=== PATIENT | male | born 1980 | race Caucasian/White ===

== ENCOUNTER 2022-06-09 11:11 | Observation (INO) ==
[2022-06-09] MEDS ORDERED: ONDANSETRON 4 MG/2 ML VIAL IV STA (11:55)
[2022-06-09] MEDS ORDERED: HYDROmorphone 1 MG/1 ML SYRINGE IV STA (11:55)
[2022-06-09] MEDS ORDERED: LACTATED RINGERS 1,000 ML IV STA (11:55)
[2022-06-09 12:23] LABS: Basophils # 0.1 10*3/uL (0.0-0.2); Basophils % 0.4 % (0.0-0.8); Eosinophils # 0.2 10*3/uL (0.0-0.87); Eosinophils % 1.8 % (0.00-10.9); Hematocrit 37.8 VOL% (42.0-52.0); Hemoglobin 12.5 GM/DL (14.0-18.0); Immature Granulocytes % 0.6 %; Immature Granulocytes Absolute 0.08 #; Lymphocytes # 1.3 10*3/uL (1.4-4.0); Lymphocytes % 10.1 % (21.2-54.2); Mean Corpuscular HGB Conc 33.1 GM/DL (32-36); Mean Corpuscular Volume 87.7 FL (87-102); Mean Platelet Volume 10.2 FL (9.6-12.0); Monocytes # 0.6 10*3/uL (0.11-0.8); Neutrophils % 82.1 % (38.7-73.9); Platelet Count 194 T/CUMM (130-400); Red Blood Count 4.31 MC/CUMM (3.8-5.5); Red Cell Distribution Width 12.5 % (9.3-17.3); White Blood Count 12.4 T/CUMM (4-12)
[2022-06-09 12:32] LABS: PT Patient Result 10.9 SECS (10.1-12.1)
[2022-06-09 12:40] LABS: Bilirubin,Total 0.4 MG/DL (0.20-1.00); Calcium 9.3 MG/DL (8.5-10.1); Osmolality,Calculated 280.1 MOS/KG (273-304); Potassium 4.1 MMOL/L (3.5-5.1); Total Protein 7.4 G/DL (6.4-8.2)
[2022-06-09 14:39] LABS: Mucus,Urine Occasional /LPF (Occasional); RBC,Urine 4 /HPF (0-4); Squamous Epithelial Cell,Urine Occasional /HPF (0-10)
[2022-06-09 14:40] LABS: Bilirubin,Urine Negative (Negative); Blood, Urine Small mg/dL (Negative); Glucose,Urine (UA) Negative (Negative); Ketones,Urine Negative (Negative); Nitrite,Urine Negative (Negative); Protein,Urine 30 mg/dL (Negative); Urine Appearance Clear (Clear); Urine Color Yellow (Yellow); Urine Specific Gravity 1.015 (1.001-1.035); Urine Urobilinogen 0.2 eU/dL (<2.0); Urine pH 7.5 (4.5-8.0)
[2022-06-09] MEDS: LACTATED RINGERS 1,000 ML IV SCH (15:41)
[2022-06-09] MEDS: HYDROmorphone 1 MG/1 ML SYRINGE IV PRN (18:10)
[2022-06-10] MEDS: HYDROmorphone 1 MG/1 ML SYRINGE IV PRN ×3 (03:04→22:07)
[2022-06-10] MEDS: LACTATED RINGERS 1,000 ML IV SCH (05:01)
[2022-06-10 07:07] LABS: Basophils % 0.2 % (0.0-0.8); Eosinophils # 0.2 10*3/uL (0.0-0.87); Eosinophils % 2.5 % (0.00-10.9); Hematocrit 34.1 VOL% (42.0-52.0); Hemoglobin 11.2 GM/DL (14.0-18.0); Immature Granulocytes % 0.4 %; Immature Granulocytes Absolute 0.03 #; Lymphocytes # 1.5 10*3/uL (1.4-4.0); Lymphocytes % 18.2 % (21.2-54.2); Mean Corpuscular HGB Conc 32.8 GM/DL (32-36); Mean Corpuscular Volume 89.3 FL (87-102); Mean Platelet Volume 11.3 FL (9.6-12.0); Monocytes # 0.8 10*3/uL (0.11-0.8); Monocytes % 9.5 % (1.7-12.7); Neutrophils % 69.2 % (38.7-73.9); Platelet Count 172 T/CUMM (130-400); Red Blood Count 3.82 MC/CUMM (3.8-5.5); Red Cell Distribution Width 12.9 % (9.3-17.3); White Blood Count 8.1 T/CUMM (4-12)
[2022-06-10] MEDS: PANTOPRAZOLE 40 MG TABLET PO SCH (08:13)
[2022-06-10] MEDS: ACETAMINOPHEN 325 MG TABLET PO PRN ×2 (11:49→19:38)
[2022-06-10] MEDS: ONDANSETRON 4 MG/2 ML VIAL IV PRN ×2 (11:49→22:05)
[2022-06-11] MEDS: PANTOPRAZOLE 40 MG TABLET PO SCH (08:02)
[2022-06-11] MEDS: ONDANSETRON 4 MG/2 ML VIAL IV PRN ×2 (08:03→13:29)
[2022-06-11] MEDS: HYDROmorphone 1 MG/1 ML SYRINGE IV PRN ×2 (08:04→13:30)
[2022-06-11 11:38] VITALS: BP 116/69
== END 2022-06-11 14:50 | disposition home or self-care (01) ==
LOC: N.EDINP 11:11 → N.ED 11:11 → N.EDINP 15:53 → N.3E 16:13
PROVIDERS: ADMIT Student in an Organized Health Care Education/Training Program; ATTEND Student in an Organized Health Care Education/Training Program